=== PATIENT | male | born 1960 | race Caucasian/White ===

== ENCOUNTER 2020-08-23 08:00 | Outpatient (CLI) | payer BC ==
--- NOTE | 2020-08-23 17:30 | XRAY Report ---
PROCEDURE: Chest 2 View X-Ray INDICATIONS: CHEST PAIN, ACUTE TECHNIQUE: 2 view(s) of the chest. COMPARISON: None. FINDINGS: Surgical changes and devices: None. Lungs and pleura: No pleural effusions or pneumothorax. Lungs are clear. Mediastinum: Mediastinal contours are normal. Heart size is normal. Bones and chest wall: No suspicious bony abnormalities. Soft tissues appear unremarkable. IMPRESSION: Normal for age, source of current symptoms is not seen. Reviewed by: Arnoldo Morrell MD on 08/23/2020 5:29 PM PST Approved by: Arnoldo Morrell MD on 08/23/2020 5:29 PM PST Station ID: [id number]
== END 2020-08-23 08:01 | disposition home or self-care (01) ==
LOC: DI.S 08:00
PROVIDERS: ATTEND Physician Assistant
DX: R07.89 Other chest pain (principal); J40 Bronchitis, not specified as acute or chronic; Z20.822 Contact with and (suspected) exposure to COVID-19

== ENCOUNTER 2020-11-11 10:07 | Emergency (ER) | payer BC ==
--- OUTSIDE RECORDS SUMMARY | 2020-11-11 10:12 | EXTERNAL MEDICAL SUMMARY RPT | Continuity of Care Document ---
:1960 Demographics Phone Unavailable Preferred Language Unknown Marital Status Unknown Presybeterian Affiliation Unknown Race Unknown Ethnic Group Unknown Author Organization [facility] Address [address] [phone] Phone Care Team Providers Name Role Phone PA-C Unavailable Unavailable SYSTEMS COORDINATOR Unavailable Unavailable Medications date description facility 20200823 [facility] [phone] [facility] [id number] [facility] [phone] [facility] Problems date description facility 20200921 referred Heart concern [employer] [id number] Chest pain, unspecified [employer] [id number] Unspecified chest pain [facility] [phone] Neck pain [facility] [phone] CHEST 2 VIEW [facility] [place] [facility] [phone] Bronchitis, not specified as acute [facility] [place] [phone] Acute chest pain [facility] [place] [id number] Other chest pain [facility] [place] [facility] [phone] Cervicalgia [facility] [place] [facility] [phone] COVID19 Testing [facility] [place] [phone] Bronchitis [facility] [place] [facility] Procedures date description facility [id number] EKG Office Complete [facility] [id number] EKG Office Complete [facility] Results test status date ordered by attending specimen kashmir e _2019NCoV_COVID-19_Lab unknown [id number] unknown unknown unknown _Test_Result_Text_ COVID-19_REFERENCE_TES unknown [id number] unknown unknown unknown T T unknown [id number] unknown unknown unknown _2019NCoV_COVID-19_Lab unknown [id number] unknown unknown unknown _Test_Result_Text_ COVID-19_REFERENCE_TES unknown [id number] unknown unknown unknown T T unknown [id number] unknown unknown unknown facility observation status value reference units lab abnor mal line range code notes [facility] _2019NCoV_CO unknown NEGATIVE unknown _6659 unkn own unknown Clinic VID-19_Lab_Te [address]_Result_[facility] COVID-19_REF unknown NEGATIVE unknown COVID unkn own unknown Clinic ERENCE_TEST 19.REF [facility] T unknown NEGATIVE unknown COVID unknown u n[facility] Clinic -19 [facility] _2019NCoV_CO unknown NEGATIVE unknown _6659 unkn own unknown Clinic VID-19_Lab_Te [address]_Result_[facility] COVID-19_REF unknown NEGATIVE unknown COVID unkn own unknown Clinic ERENCE_TEST 19.REF [facility] T unknown NEGATIVE unknown COVID [facility] Vital Signs date measurement value source 20200823 weight_standard 252 lb 20200823 weight_metric 114.31 kg 20200823 temperature_standard 98.3 F 20200823 temperature_metric 36.83 C 20200823 respiration_rate 16 /min 20200823 height_standard 71 in 20200823 height_metric 180.34 cm 20200823 heart_rate 78 /min 20200823 BP_systolic 147 mm[Hg] 20200823 BP_diastolic 94 mm[Hg] 20200823 BMI 35.27 kg/m2 20200823 weight_standard 252 lb 20200823 weight_metric 114.31 kg 20200823 temperature_standard 98.3 F 20200823 temperature_metric 36.83 C 20200823 respiration_rate 16 /min 20200823 height_standard 71 in 20200823 height_metric 180.34 cm 20200823 heart_rate 78 /min 20200823 BP_systolic 147 mm[Hg] 20200823 BP_diastolic 94 mm[Hg] 20200823 BMI 35.27 kg/m2
[2020-11-11 10:16] VITALS: BP 149/82
--- NOTE | 2020-11-11 10:38 | ED Physician Documentation ---
History of Present Illness - Stated complaint Stated Complaint: LT FOOT SWOLLEN - Chief complaint Chief Complaint: Ext Problem - History obtained from History obtained from: Patient - Additonal information Additional information: 60-year-old man with past medical history of coronary artery disease recently placed on aspirin and Plavix, presents with Bleeding between his left fourth and fifth toe and swelling to the top of the foot with mild pain since yesterday. He also had a bug bite on his left anterior calf that he scratched and was bleeding. Patient is ambulatory on the foot with some mild pain. He has full range of motion of the ankle and no pain in the ankle. Review of Systems Constitutional: denies: Fever Skin: reports: Bite / sting Musculoskeletal: reports: Extremity pain, Extremity swelling PD PAST MEDICAL HISTORY - Present Medications Home Medications: Ambulatory Orders Medication Instructions Recorded Confirmed cephALEXin [Keflex] 500 mg PO Q6H #28 11/11/20 - Allergies Allergies/Adverse Reactions: Allergies Allergy/AdvReac Type Severity Reaction Status Date / Time No Known Drug Allergies Allergy Verified 11/11/20 10:16 PD ED PE NORMAL - Vitals Vital signs reviewed: Yes - General General: Alert and oriented X 3, No acute distress, Well developed/nourished - HEENT HEENT: Atraumatic, PERRL, EOMI - Derm Derm: Normal color, Warm and dry, Other (Small mosquito bite michael to left anterior calf with mild excoriation and bloody scab formation. Subcentimeter horizontal crack between left fourth and fifth toes without bleeding. Mild cellulitis to left anterior foot. Nontender on exam. Full range of motion of the ankle.) - Extremities Extremities: Other (2+ bilateral DP and PT pulses. Normal strength and sensation) - Neuro Neuro: No motor deficit, No sensory deficit Results - Vitals Vitals: Vital Signs - 24 hr 11/11/20 10:13 Temperature 36.2 C L Heart Rate 71 Respiratory 16 Rate Blood Pressure 149/82 H O2 Saturation 99 Oxygen O2 Source Room air PD MEDICAL DECISION MAKING - ED course ED course: 60-year-old man presents with lower extremity cellulitis. Antibiotics prescribed. Return precautions given. He will follow up with his primary doctor. Departure - Departure Disposition: 01 Home, Self Care Clinical Impression: Cellulitis Condition: Good Instructions: Cellulitis Dc Prescriptions: cephALEXin [Keflex] 500 mg PO Q6H #28 Comments: You are seen in the emergency department for a mild cellulitis (skin infection) of the left foot. Take your antibiotics as prescribed and if you do not have improvement within 48 hours then please return for reevaluation or go to urgent care. Follow-up with your primary doctor this week. Return to the emergency department if you have any new or worsening symptoms or other concerns.
--- OUTSIDE RECORDS SUMMARY | 2020-11-11 10:46 | EXTERNAL MEDICAL SUMMARY RPT | Continuity of Care Document ---
:1960 Demographics Phone Unavailable Preferred Language Unknown Marital Status Unknown Hinduism Affiliation Unknown Race Unknown Ethnic Group Unknown Author Organization [place] Address [address] [phone] Phone Care Team Providers Name Role Phone INSTITUTIONAL CUSTODIAN Unavailable Unavailable PA-C Unavailable Unavailable Medications date description facility 20200823 [facility] [phone] [facility] [phone] [facility] [phone] [facility] Problems date description facility 20200921 referred Heart concern [employer] [id number] Chest pain, unspecified [employer] [id number] Unspecified chest pain [facility] [place] [phone] Neck pain [facility] [place] [phone] CHEST 2 VIEW [facility] [place] [facility] [place] [phone] Bronchitis, not specified as acute [facility] [place] [phone] Acute chest pain [facility] [place] [phone] Other chest pain [facility] [place] [facility] [place] [phone] Cervicalgia [facility] [place] [facility] [place] [phone] COVID19 Testing [facility] [place] [phone] Bronchitis [facility] [place] [facility] Procedures date description facility [id number] EKG Office Complete [facility] 20633234 EKG Office Complete [facility] Results test status date ordered by attending specimen kashmir e _2019NCoV_COVID-19_Lab unknown [id number] unknown unknown unknown _Test_Result_Text_ COVID-19_REFERENCE_TES unknown [id number] unknown unknown unknown T T unknown [id number] unknown unknown unknown _2019NCoV_COVID-19_Lab unknown [id number] unknown unknown unknown _Test_Result_Text_ COVID-19_REFERENCE_TES unknown [id number] unknown unknown unknown T T unknown [id number] unknown unknown unknown facility observation status value [...] T unknown NEGATIVE unknown [facility] [...]
== END 2020-11-11 10:45 | disposition home or self-care (01) ==
LOC: ED 10:07
DX: S80.862A Insect bite (nonvenomous), left lower leg, initial encounter (principal); W57.XXXA Bitten or stung by nonvenomous insect and other nonvenomous arthropods, initial encounter; L03.116 Cellulitis of left lower limb
CPT/HCPCS: 99282; 99283

== ENCOUNTER 2021-07-14 11:18 | Outpatient (CLI) | payer OTHER ==
--- NOTE | 2021-07-14 12:23 | XRAY Report ---
PROCEDURE: Lumbar Spine 2 View INDICATIONS: X RAY TECHNIQUE: 2 views of the lumbar spine were acquired. COMPARISON: None. FINDINGS: Bones: 5 [id number] vertebrae are present. No vertebral body compression fractures. No suspic ious bony lesions. Mild disc space narrowing is seen at L3-L4. There is at least moderate disc space narrowing at L4-L5. Moderate severe disc space narrowing is seen at L5-S1. Partially bridging anterior osteophytes are s een at several levels, with prominent bridging anterior osteophytes noted at L5-S1. Facet arthropath y is seen, which is most prominent inferiorly. Mild dextroconvex scoliotic curvature is seen. Minima l retrolisthesis is seen at L1-L2 and L5-S1. Soft tissues: Overlying bowel gas pattern is normal. No suspicious soft tissue calcifications. IMPRESSION: Multiple levels of lumbar spine degenerative change are seen, which are worst at L5-S1. Mild dextroconvex scoliotic curvature is seen. Reviewed by: Ephraim Cotto MD on 07/14/2021 11:22 AM [facility] Approved by: Ephraim Cotto MD on 07/14/2021 11:22 AM [facility] Station ID: [id number]
== END 2021-07-14 11:19 | disposition home or self-care (01) ==
LOC: DI.S 11:18
PROVIDERS: ATTEND Chiropractor
DX: S33.0XXA Traumatic rupture of lumbar intervertebral disc, initial encounter (principal); M47.816 Spondylosis without myelopathy or radiculopathy, lumbar region; M47.817 Spondylosis without myelopathy or radiculopathy, lumbosacral region

== ENCOUNTER 2023-09-09 08:00 | Outpatient (CLI) | payer BC, OTHER ==
--- NOTE | 2023-09-09 16:13 | XRAY Report ---
PROCEDURE: Chest 2V INDICATIONS: PNEUMONIA TECHNIQUE: 2 views of the chest were acquired. COMPARISON: Chest x-ray 321 FINDINGS: Surgical changes and devices: None. Lungs and pleura: No pleural effusions or pneumothorax. Lungs are clear. Mediastinum: Mediastinal contours appear normal. Heart size is normal. Bones and chest wall: No suspicious bony lesions. Overlying soft tissues appear unremarkable. IMPRESSION: No acute cardiopulmonary process. Reviewed by: Karen Rodas MD on 09/09/2023 4:11 PM PDT Approved by: Karen Rodas MD on 09/09/2023 4:11 PM PDT Station ID: [id number]
== END 2023-09-09 23:59 | disposition home or self-care (01) ==
LOC: DI.S 08:00
PROVIDERS: ATTEND Registered Nurse
DX: J18.9 Pneumonia, unspecified organism (principal)